=== PATIENT | male | born 1990 | race Caucasian/White ===

== ENCOUNTER 2023-04-02 08:26 | Emergency (ER) | payer MEDICAID, SELFPAY ==
--- NOTE | ~2023-04-02 | CT_ITS ---
EXAMINATION: CT ABDOMEN AND PELVIS WITH CONTRAST CLINICAL INFORMATION: Abdominal pain and periumbilical pain COMPARISON: None available. TECHNIQUE: Multidetector volumetric images were obtained from the superior aspect of the liver through the pubic symphysis following administration 85 mL of Omnipaque 350 intravenous contrast. Sagittal and coronal reformatted images were obtained on the technologist's workstation. Oral contrast: No This CT examination was performed using dose optimization techniques as appropriate, variously including the following: *Automated exposure control *Adjustment of mA and/or kV according to patient size (this includes techniques or standardized protocols for targeted exams where dose is matched to indication/reason for exam; i.e. extremities or head) *Use of iterative reconstruction technique DLP: 342 mGy-cm FINDINGS: LUNG BASES: The visualized lung bases are unremarkable. LIVER, GALLBLADDER, AND BILIARY TREE: The liver is normal in size, shape, and attenuation. No focal hepatic lesion or biliary ductal dilatation is present. The gallbladder is unremarkable with no evidence of radiopaque gallstones, gallbladder wall thickening, or obvious pericholecystic inflammatory changes. PANCREAS: Unremarkable. SPLEEN: Unremarkable. ADRENAL GLANDS: Unremarkable. KIDNEYS AND URETERS: There is a 1 mm stone in the distal left ureter with slight distention of the left ureter and mild left hydronephrosis. No right or left nephrolithiasis. There is a delayed left nephrogram. No perinephric collections. BLADDER: Unremarkable. GASTROINTESTINAL TRACT: No bowel obstruction or right or left lower quadrant inflammatory change. Appendix normal. ABDOMINAL WALL: No significant hernia is appreciated. LYMPH NODES: Normal. VASCULAR: Unremarkable. PELVIC VISCERA: Unremarkable. OSSEOUS STRUCTURES: Unremarkable. CT/CT abdomen pelvis w IV con IMPRESSION: Tiny stone distal left ureter with mild left hydronephrosis. Fleischner guidelines were followed.
[2023-04-02 08:33] VITALS: BP 128/67; BP 133/88; PULSE 58; PULSE 61; RESP 16; TEMP 36.5; O2SAT 100; O2SAT 99; BMI 26.2
--- NOTE | 2023-04-02 08:39 | PC.NURSE ---
patient coming from home, states he started having lower abd pain this morning, mainly the left lower side to the middle lower part of his abd. states he is urinating normally, had BM this morning. patient states he had diarrhea and several episodes of vomiting this morning. patient appears to be pale, skin dry and intact. patient denies any chest pain, sob, or other symptoms.
[2023-04-02 09:25] VITALS: BP 122/81; PULSE 60; RESP 18; TEMP 36.7; O2SAT 99
--- NOTE | 2023-04-02 09:35 | ED_ITS ---
HPI - Abdominal Pain General Chief Complaint: Abdominal Pain Stated Complaint: ABD PAIN,VOMITING/DIARRHEA FROM URG CARE PER EMS Time Seen by Provider: 04/02/23 09:34 Source: patient and RN notes reviewed Mode of arrival: ambulatory Limitations: no limitations History of Present Illness HPI narrative: This is a 32-year-old male, with no known medical problems, presenting to the emergency department with lower abdominal pain, and diarrhea starting this morning. Patient states that while he was at home, he suddenly developed abdominal pain, around his umbilicus. He started to have multiple episodes of vomiting and 1 episode of diarrhea. Denies hemoptysis or bloody or black stool. Denies history of similar symptoms. He reported to an urgent care but was sent here via ambulance given symptoms. Denies any fevers, chills, chest pain, shortness breast, cough, or any urinary symptoms. He states that last night he had pepperoni pizza, denies any other unusual foods that he consumed. Denies history of abdominal surgeries. No other complaints or concerns at this time. MD elicited complaint: abdominal pain Pertinent past history: none Onset (ago): hour(s) Pain Consistency: constant Location: periumbilical, LUQ and LLQ Severity: moderate Pain scale (0-10): 8 Quality: cramping and stabbing Radiation: none Migration to: no migration Exacerbating factors: nothing Relieving factors: nothing Associated symptoms: nausea, vomiting and diarrhea Related Data Previous Rx's Medication Instructions Recorded tamsulosin 0.4 mg capsule (Flomax) 0.4 mg PO DAILY 7 days #7 caps 04/02/23 Allergies Allergy/AdvReac Type Severity Reaction Status Date / Time benztropine [From Cogentin] Allergy Intermediate Blurry Verified 04/02/23 09:30 Vision haloperidol [From Haldol] Allergy Intermediate Blurry Verified 04/02/23 09:30 Vision Review of Systems Review of Systems Yes all other systems are reviewed and are negative Constitutional: Reports as per HPI [facility] Social History Social History Alcohol intake: former Smoked in Last 30 Days: No Use of substances other than those prescribed or required for medical reasons: No Advance Directives: No Advance Directives Information Provided: No Physical Exam ED Vital Signs: Vital Signs - 24 hr 04/02/23 08:33 04/02/23 09:25 04/02/23 11:28 Temperature 97.7 F 98.0 F 98.1 F Pulse Rate 58 60 58 Respiratory Rate 16 18 16 Blood Pressure 133/88 122/81 101/47 L Pulse Oximetry 100 99 98 Oxygen Delivery Method Room Air Room Air Room Air 04/02/23 13:57 Temperature 98.1 F Pulse Rate 52 Respiratory Rate 16 Blood Pressure 107/77 Pulse Oximetry 98 Oxygen Delivery Method Room Air BMI result Body Mass Index 26.2 Const General: cooperative, comfortable and no acute distress Orientation/consciousness: patient oriented x3 Limitations: no limitations HENMT Other: Dry mucous membranes Head: Yes normal to inspection, Yes normocephalic and Yes atraumatic Ears: hearing grossly normal bilaterally and TM's normal bilaterally General nose exam: Normal external nose present Face and sinus: Yes normal facial exam Mouth: Normal oral and palatal mucosa present, oropharynx normal and moist mucous membranes Throat: Yes posterior oropharynx normal Eyes General: appearance normal, both eyes and all related structures Eyelids: Yes eyelids normal Conjunctivae: conjunctivae normal Sclerae: sclerae normal Pupils: Equal, round and reactive pupils present EOM: EOMs intact bilaterally Neck Neck: Yes normal visual inspection, Yes full ROM and Yes no lymphadenopathy Lymphatic: no lymphadenopathy noted Chest Chest palpation & inspection: normal inspection of the chest Resp Effort & Inspection: normal respiratory effort and able to speak in complete sentences Auscultation: clear to auscultation bilaterally, no crackles, no rales, no rhonchi and no wheezes Cardio Rate: regular rate Rhythm: regular rhythm Heart sounds: S1 normal heart sound present and S2 normal heart sound present GI Inspection: Yes normal to inspection Skin General skin exam: no rashes or lesions noted Trauma: no lacerations or abrasions Wounds: no wounds Neuro General: patient oriented x3 and moves all extremities Cranial nerves: Yes Equal, round and reactive pupils present Extrem General: Yes normal to inspection Right upper extremity: normal to inspection Left upper extremity: normal to inspection Right lower extremity: normal to inspection Left lower extremity: normal to inspection Course Reevaluation(s) Reevaluation #1: Labs return, patient does have slight leukocytosis at 14.8, with left shift. Creatinine 1.52, given DIAMOND, patient has been medicated with IV fluids. 2 L was ordered. Patient re-evaluated no longer having pain, symptoms have improved. 2 L hung, will repeat chemistry to ensure that kidney function improves. Time: 12:16 Reevaluation #2: DIAMOND had improved after receiving IV fluids. Discussed findings with patient regarding tiny calculus in kidney, patient discharged on Flomax and Urology follow-up. Symptoms likely viral in nature. Given return precautions. Patient comfortable, no longer experiencing any nausea or pain. Patient stable for discharge Time: 14:51 Medical Decision Making Medical Decision Making [facility] Narrative: This is a 32-year-old male, with no known medical problems, presenting to the emergency department with complaints of lower abdominal pain, nausea, vomiting and diarrhea since this morning. On arrival, vital signs within normal limits. Patient is nontoxic appearing. Patient has diffuse tenderness to palpation throughout the entire abdomen worse in his periumbilical as well as left lower quadrant. Differential Diagnosis Differential Diagnoses: The differential diagnosis associated with the presentation includes Admission/Observation Consideration of admission/observation: Escalation of care including admission/observation considered Lab Data [facility] Lab Attestation statement: I reviewed the patient's lab results. 04/02/23 09:33 04/02/23 13:43 Labs: Lab Results 04/02/23 04/02/23 Range/Units 09:33 13:43 WBC 14.8 H (4.8-10.8) X10*3/uL RBC 5.88 H (4.60-5.80) X10*6/uL Hgb 17.2 (14.0-18.0) g/dl Hct 49.6 (42.0-52.0) % MCV 84.4 (80.0-98.0) fL MCH 29.3 (27.0-33.0) pg MCHC 34.7 (31.0-36.0) g/dl RDW 12.3 (11.0-16.0) % Plt Count 268 (160-400) X10*3/uL MPV 9.9 (9.4-12.4) fL Immature Gran % (Auto) 0.5 H (0.0-0.4) % Neut % (Auto) 87.7 H (45-73) % Lymph % (Auto) 8.0 L (20-40) % Terrell % (Auto) 3.6 (2-11) % Eos % (Auto) 0.1 (0-4) % Baso % (Auto) 0.1 (0-2) % Lymph # (Auto) 1.2 (1.2-4.9) X10*3/uL Terrell # (Auto) 0.5 (0.1-1.2) X10*3/uL Eos # (Auto) 0.0 (0.0-0.4) X10*3/uL Baso # (Auto) 0.0 (0.0-0.2) X10*3/uL Abs Immat Gran (auto) 0.07 H (0.00-0.03) X10*3/uL Absolute Neuts (auto) 13.0 H (2.0-8.3) x10*3/uL Absolute Nucleated RBC 0.000 (0.0-0.012) X10*3/uL Nucleated RBC % (auto) 0.0 (0.0-0.2) /100WBC Sodium 141 141 (135-145) mmol/L Potassium 4.4 5.0 (3.3-5.1) mmol/L Chloride 108 113 H (96-108) mmol/L Carbon Dioxide 24 26 (22-29) mmol/L Anion Gap 13 7 L (12-20) BUN 14 12 (9-16) mg/dL Creatinine 1.52 H 1.35 (0.5-1.4) mg/dL Estim Creat Clear Calc 60.6 68.3 Estimated GFR 53 > 60 Random Glucose 141 H 106 (60-115) mg/dL Calcium 9.1 8.4 D (8.4-10.2) mg/dL Total Bilirubin 0.3 (0.0-1.0) mg/dL AST 15 (5-37) U/L ALT 14 (0-40) U/L Alkaline Phosphatase 77 (39-117) U/L Total Protein 7.3 (6.5-8.0) g/dL Albumin 4.2 (3.5-5.0) g/dL Radiology Impression Discussion of test interpretation with radiology: I have reviewed the radiologist's reading. External Record Review External record reviewed: Inpatient record, Office record, Outpatient record, Prior outpatient labs, Prior outpatient radiology, Primary care record and Outside ED record Medications Administered Discontinued Medications Generic Name Dose Route Start Last Admin Trade Name Freq PRN Reason Stop Dose Admin Sodium Chloride 1,000 mls @ 999 mls/hr 04/02/23 09:42 04/02/23 11:24 Ns IV 04/02/23 10:42 Infused .Q1H1M ONE Infusion Sodium Chloride 1,000 mls @ 999 mls/hr 04/02/23 12:16 04/02/23 13:38 Ns IV 04/02/23 13:16 Infused .Q1H1M ONE Infusion Iohexol 100 ml 04/02/23 10:15 04/02/23 10:15 Iohexol 350 Mg/Ml 100 Ml Infus..Btl IV 04/02/23 10:16 85 ml ONCE ONE Administration Morphine Sulfate 4 mg 04/02/23 09:41 04/02/23 10:23 Morphine Sulfate 4 Mg/Ml Cartridge IVPUSH 04/02/23 09:42 4 mg ONCE ONE Administration Protocol Ondansetron HCl 4 mg 04/02/23 09:41 04/02/23 10:23 Ondansetron Hcl 4 Mg/2 Ml Vial IVPUSH 04/02/23 09:42 4 mg ONCE ONE Administration Discharge Plan Discharge Clinical Impression: Nausea and vomiting, Kidney calculus, Acute kidney injury Patient Disposition: Home, Self-Care Instructions: Kidney Stones (ED), Acute Nausea and Vomiting (ED) Additional Instructions: Your seen in the emergency department due to abdominal pain, nausea and vomiting. Your blood work revealed a slight kidney injury, this was improved after receiving IV fluids. Your pain resolved after receiving morphine and Zofran. Please drink plenty of fluids get plenty of rest. Stick to a bland diet, a diet avoiding spicy or fried foods can help with your symptoms. Your CT scan revealed a very small kidney stone. This likely will pass on its own however I am prescribing you a medication called Flomax which will help get rid of this kidney stone without any complications. I am also giving your referral to Urology, call to make an appointment. If you develop any urinary symptoms or pain, please return for re-evaluation. Stick to a bland diet, a diet avoiding spicy or fried foods can help with your symptoms. If any new or worsening symptoms occur including but not limited to chest pain, shortness of breath abdominal pain, nausea, vomiting or diarrhea, please return for re-evaluation. Prescriptions: New tamsulosin [Flomax] 0.4 mg capsule 0.4 mg PO DAILY 7 Days Qty: 7 0RF Referrals: [facility] [Provider Group] Stand Alone Forms: Work/School Release Interventions: ED Discharge Assessment Last Done: 04/02/23 14:52
[2023-04-02 09:37] LABS: MANUAL DIFF FLAG NO
[2023-04-02 09:40] LABS: Basophils Percent Auto 0.1 % (0-2); Eosinophils Percent Auto 0.1 % (0-4); Hematocrit 49.6 % (42.0-52.0); Hemoglobin 17.2 g/dl (14.0-18.0); Imm Gran Abs Auto 0.07 X10*3/uL (0.00-0.03); Imm Gran Pct Auto 0.5 % (0.0-0.4); Lymphocytes Absolute Auto 1.2 X10*3/uL (1.2-4.9); Mean Corpuscular HGB Conc 34.7 g/dl (31.0-36.0); Mean Corpuscular Hemoglobin 29.3 pg (27.0-33.0); Mean Corpuscular Volume 84.4 fL (80.0-98.0); Mean Platelet Volume 9.9 fL (9.4-12.4); Monocytes Absolute Auto 0.5 X10*3/uL (0.1-1.2); Monocytes Percent Auto 3.6 % (2-11); Neutrophils Percent Auto 87.7 % (45-73); Platelet Count 268 X10*3/uL (160-400); Red Blood Count 5.88 X10*6/uL (4.60-5.80); Red Cell Distribution Width 12.3 % (11.0-16.0); White Blood Count 14.8 X10*3/uL (4.8-10.8)
[2023-04-02 09:54] LABS: Alanine Aminotransferase 14 U/L (0-40); Albumin Level 4.2 g/dL (3.5-5.0); Alkaline Phosphatase 77 U/L (39-117); Anion Gap 13 (12-20); Aspartate Amino Transferase 15 U/L (5-37); Bilirubin Total 0.3 mg/dL (0.0-1.0); Blood Urea Nitrogen 14 mg/dL (9-16); Calcium 9.1 mg/dL (8.4-10.2); Carbon Dioxide 24 mmol/L (22-29); Chloride 108 mmol/L (96-108); Creatinine Clr Calc Pharmacy 60.6; Estimated Glomerular Filt Rate 53; Glucose Random 141 mg/dL (60-115); Potassium 4.4 mmol/L (3.3-5.1); Sodium 141 mmol/L (135-145); Total Protein 7.3 g/dL (6.5-8.0)
[2023-04-02] MEDS: iohexoL 350 MG/ML 100 ML INFUS..BTL IV (10:15)
[2023-04-02] MEDS: 0.9 % Sodium Chloride 1,000 ML 999 ML IV ×2 (10:23→12:22)
[2023-04-02] MEDS: ondansetron HCL 4 MG/2 ML VIAL IVPUSH (10:23)
[2023-04-02] MEDS: Morphine Sulfate 4 MG/ML CARTRIDGE IVPUSH (10:23)
--- NOTE | 2023-04-02 10:24 | PC.NURSE ---
patient a&ox3, iv inserted, labs drawn, c/o 09/08 abd pain, vss, pt went to ct scan, ivf hung per order, pt medicated per order, call duff within reach, will continue to monitor
[2023-04-02 11:28] VITALS: BP 101/47; PULSE 58; RESP 16; TEMP 36.7; O2SAT 98
--- NOTE | 2023-04-02 11:30 | PC.NURSE ---
patient a&ox3, vss, pt states his pain has reduced to 1/10, call duff within reach, will continue to monitor
--- NOTE | 2023-04-02 12:22 | PC.NURSE ---
ivf hung per order, pt states his pain is now a 0/10
--- NOTE | 2023-04-02 13:30 | PC.NURSE ---
patient face cleaned up of dried blood with PA, patient has right eyebrow lac. patient tolerated well
--- NOTE | 2023-04-02 13:50 | PC.NURSE ---
repeat labs drawn
[2023-04-02 13:57] VITALS: BP 107/77; PULSE 52; RESP 16; TEMP 36.7; O2SAT 98
[2023-04-02 14:00] LABS: Anion Gap 7 (12-20); Blood Urea Nitrogen 12 mg/dL (9-16); Calcium 8.4 mg/dL (8.4-10.2); Carbon Dioxide 26 mmol/L (22-29); Chloride 113 mmol/L (96-108); Creatinine Clr Calc Pharmacy 68.3; Estimated Glomerular Filt Rate > 60; Glucose Random 106 mg/dL (60-115); Sodium 141 mmol/L (135-145)
== END 2023-04-02 15:02 | disposition home or self-care (01) ==
PROVIDERS: Physician Assistant Medical; Emergency Provider Emergency Medicine
DX: N13.2 Hydronephrosis with renal and ureteral calculous obstruction (principal); N17.8 Other acute kidney failure; R11.2 Nausea with vomiting, unspecified
CPT/HCPCS: 36415; 74177; 80048; 80053; 85025; 96361; 96374; 96375; 99284; J2270; J2405; Q9967

== ENCOUNTER 2023-04-27 08:11 | Outpatient (AMB) | payer MEDICAID, SELFPAY ==
--- NOTE | 2023-04-27 08:13 | A.OFFVIS_ITS ---
Intake Intake Visit Reasons: Ureteral stone Intake Note: NEW Patient presents today to established treatment for Urethral Stone: Meds- Tamsulosin Allergies to Antibiotic- No Known Allergies Blood Thinner- None Plaster Block Layer Required: No Accompanied by: Self / Same As Patient Allergies benztropine [From Cogentin] Allergy (Intermediate, Verified 04/27/23 08:16) Blurry Vision haloperidol [From Haldol] Allergy (Intermediate, Verified 04/27/23 08:16) Blurry Vision HPI HPI Comments History of Present Illness Details Oracio is a 32-year-old male who states he is adopted and is seen today for evaluation due to kidney stone. The patient was seen in the [place] ED on 04/02/2023 with symptoms of nausea vomiting and abdominal pain. CT imaging on 04/02/23 was notable for 1 mm distal ureteral stone. The patient states that his symptoms have resolved. He states he is not sure if he passed the stone I did reassure him that the stone was tiny. The patient states he does not drink much water he does drink tea a few times a week. I have discussed at length diet modification to decrease risk of forming more kidney stones. I have discussed low oxalate diet and specific foods to avoid including certain green leafy vegetables, chocalate, nuts, tea, beets, rubarb; low sodium, decreased use of animal protein and the importance of hydration drinking up to 2-2.5 liters of fluids and use of adding lemon to water to increase citrate in the diet. A pamphlet is also provided today. 04/27/2023--Plan Check kidneys-renal ultrasound Diet modification discussed encouraged to increase water intake. [facility] Social History Alcohol intake: former Review of Systems Const All systems reviewed & are unremarkable except as noted in HPI and below Reports no additional complaints Eyes Reports no additional complaints ENT Reports no additional complaints Card Denies dyspnea Resp Denies cough and Denies dyspnea GI Reports no additional complaints Musc Reports no additional complaints Skin/Breast Denies rash and Denies unusual bruising Neuro Reports no additional complaints Psych Reports no additional complaints Endo Reports no additional complaints Luis/Lymph Reports no additional complaints Aller/Immun Reports no additional complaints Physical Exam Const General: healthy appearing, no acute distress and well developed Orientation/consciousness: patient oriented x3 HEENT Head: Yes normocephalic and Yes atraumatic Eyes Conjunctivae: conjunctivae normal Neck Neck: Yes normal visual inspection Chest Chest palpation & inspection: normal inspection of the chest Resp Effort & Inspection: normal respiratory effort Cardio Rate: regular rate GI Inspection: Yes normal to inspection Skin General skin exam: no rashes or lesions noted Neuro General: patient oriented x3 Extrem General: No pedal edema Psych Appearance: grossly normal Affect: normal affect Results AMB Urinalysis, Automated UA Leukoctes 0 Polly/uL Last Edit by ALMA DELIA Edwards on 04/27/23 08:24 UA Nitrite Negative Last Edit by ALMA DELIA Edwards on 04/27/23 08:24 UA Urobilinogen 0.2 mg/dL Last Edit by ALMA DELIA Edwards on 04/27/23 08:2 4 UA Protein 0 mg/dL Last Edit by ALMA DELIA Edwards on 04/27/23 08:24 UA pH 5.5 Last Edit by ALMA DELIA Edwards on 04/27/23 08:24 UA Blood 0 Ramses/uL Last Edit by ALMA DELIA Edwards on 04/27/23 08:24 UA Specific [place] 1.030 Last Edit by ALMA DELIA Edwards on 04/27/23 08: 24 UA Ketone Negative Last Edit by ALMA DELIA Edwards on 04/27/23 08:24 UA Bilirubin 0 mg/dL Last Edit by ALMA DELIA Edwards on 04/27/23 08:24 UA Glucose 0 mg/dL Last Edit by ALMA DELIA Edwards on 04/27/23 08:24 Results Reviewed Results Reviewed: Laboratory Last Values Urine pH (Auto) 5.5 04/27/23 08:23 Specific [place] (Auto) 1.030 04/27/23 08:23 Urine Protein (Auto) 0 mg/dL 04/27/23 08:23 Glucose (UA)(Auto) 0 mg/dL 04/27/23 08:23 Urine Ketones (Auto) Negative 04/27/23 08:23 Urine Blood (Auto) 0 Ramses/uL 04/27/23 08:23 Urine Nitrite (Auto) Negative 04/27/23 08:23 Urine Bilirubin (Auto) 0 mg/dL 04/27/23 08:23 Urine Urobilinogen (Auto) 0.2 mg/dL 04/27/23 08:23 Leukocyte Esterase (Auto) 0 Polly/uL 04/27/23 08:23 Date of Service: 04/02/23 EXAMINATION: CT ABDOMEN AND PELVIS WITH CONTRAST CLINICAL INFORMATION: Abdominal pain and periumbilical pain COMPARISON: None available. TECHNIQUE: Multidetector volumetric images were obtained from the superior aspect of the liver through the pubic symphysis following administration 85 mL of Omnipaque 350 intravenous contrast. Sagittal and coronal reformatted images were obtained on the technologist's workstation. Oral contrast: No This CT examination was performed using dose optimization techniques as appropriate, variously including the following: *Automated exposure control *Adjustment of mA and/or kV according to patient size (this includes techniques or standardized protocols for targeted exams where dose is matched to indication/reason for exam; i.e. extremities or head) *Use of iterative reconstruction technique DLP: 342 mGy-cm FINDINGS: LUNG BASES: The visualized lung bases are unremarkable. LIVER, GALLBLADDER, AND BILIARY TREE: The liver is normal in size, shape, and attenuation. No focal hepatic lesion or biliary ductal dilatation is present. The gallbladder is unremarkable with no evidence of radiopaque gallstones, gallbladder wall thickening, or obvious pericholecystic inflammatory changes. PANCREAS: Unremarkable. SPLEEN: Unremarkable. ADRENAL GLANDS: Unremarkable. KIDNEYS AND URETERS: There is a 1 mm stone in the distal left ureter with slight distention of the left ureter and mild left hydronephrosis. No right or left nephrolithiasis. There is a delayed left nephrogram. No perinephric collections. BLADDER: Unremarkable. GASTROINTESTINAL TRACT: No bowel obstruction or right or left lower quadrant inflammatory change. Appendix normal. ABDOMINAL WALL: No significant hernia is appreciated. LYMPH NODES: Normal. VASCULAR: Unremarkable. PELVIC VISCERA: Unremarkable. OSSEOUS STRUCTURES: Unremarkable. IMPRESSION: Tiny stone distal left ureter with mild left hydronephrosis. Assessment & Plan Assessment & Plan (1) Ureteral stone: Code(s): N20.1 - Calculus of ureter (2) Abdominal pain: Code(s): R10.9 - Unspecified abdominal pain (3) Renal colic: Code(s): N23 - Unspecified renal colic Plan Check kidneys-renal ultrasound Diet modification discussed encouraged to increase water intake. Orders: Orders AMB Urinalysis Automated Today Z13.9 - Encounter for screening, unspecified US renal BI Today N20.1 - Calculus of ureter Patient Instructions: The patient had an opportunity to ask questions regarding treatment plan. All questions were answered. Imaging, Laboratory studies and physical exam results were discussed and reviewed in detail. No major barriers to understanding were identified. The patient expressed understanding and agreement with the above treatment plan. The patient is aware they should contact our office by phone for worsening of their current condition or the appearance of new symptoms. Compliance is encour aged with any medications and followup testing that is ordered. It is a privilege to be allowed the opportunity to participate in the urologic care of your patient. If you have any questions or concerns regarding treatment for the above conditions please do not hesitate to contact me. The office telephone contact is [phone]. This note is constructed in part using voice recognition software. While every effort has been made to ensure accuracy form block maker errors may have been included. Yours sincerely, Janice Munoz MD Coding Level of Care Code New Pt Level 4 (01840) Diagnoses Ureteral stone N20.1 Abdominal pain R10.9 Renal colic N23
== END 2023-04-27 08:47 | disposition home or self-care (01) ==
PROVIDERS: Visit Provider Urology
DX: N20.1 Calculus of ureter (principal); N23 Unspecified renal colic; Z13.9 Encounter for screening, unspecified
CPT/HCPCS: 99203

== ENCOUNTER → 2023-04-27 08:11 | Outpatient (BNVA) | payer MEDICAID, SELFPAY | PROVIDERS: Visit Provider Urology | DX: N20.1 Calculus of ureter (principal); N23 Unspecified renal colic; R10.9 Unspecified abdominal pain | CPT/HCPCS: 81003; 99202 ==